=== PATIENT | male | born 1975 | race Caucasian/White ===

== ENCOUNTER 2019-08-08 02:59 | Inpatient (IN) ==
[2019-08-08] MEDS ORDERED: Naloxone 0.4 MG/ML INJ IVP PRN (03:47)
[2019-08-08 04:15] LABS: Basophils # 0.1 K/mcL (0.0-0.2); Basophils % 0.6 %; Eosinophils # 0.2 K/mcL (0.0-0.6); Eosinophils % 1.8 %; Hematocrit 40.4 % (37.5-50.1); Immature Granulocytes % 0.2 % (0-4); Lymphocytes # 1.2 K/mcL (0.6-4.6); Lymphocytes % 13.9 %; Mean Corpuscular HGB Conc 32.2 g/dL (31.6-35.5); Mean Corpuscular Hemoglobin 27.5 pg (28.0-33.3); Mean Corpuscular Volume 85.4 fL (83.0-100.0); Mean Platelet Volume 9.9 fL (9.4-12.4); Monocytes # 0.7 K/mcL (0.0-1.3); Monocytes % 7.5 %; Neutrophils # 6.6 K/mcL (1.6-8.9); Platelet Count 306 K/mcL (140-400); Red Blood Count 4.73 M/mcL (4.19-5.50); Red Cell Distribution Width 13.8 % (11.5-14.5); White Blood Count 8.8 K/mcL (4.3-11.1)
[2019-08-08 04:25] LABS: INR 1.3; Prothrombin Time 14.7 Seconds (9.4-12.1)
[2019-08-08 04:28] LABS: Activated Partial Thrombo Time 30.3 Seconds (26.0-36.0)
[2019-08-08 04:38] LABS: Alanine Aminotransferase 18 Units/L (7-52); Albumin 4.2 g/dL (3.5-5.7); Albumin/Globulin Ratio 1.6 (1.1-2.2); Alkaline Phosphatase 59 Units/L (34-104); Aspartate Amino Transferase 19 Units/L (13-39); BUN/Creatinine Ratio 16 (6-26); Bilirubin,Total 1.1 mg/dL (0.3-1.0); Blood Urea Nitrogen 16 mg/dL (6-20); Calcium 9.1 mg/dL (8.6-10.3); Carbon Dioxide 23 mEq/L (23-29); Chloride 103 mEq/L (98-107); Globulin 2.7 g/dL (2.4-3.5); Glucose 119 mg/dL (70-105); Magnesium 1.9 mg/dL (1.6-2.6); Osmolality,Calculated 284 (280-300); Potassium 3.7 mEq/L (3.5-5.1); Sodium 136 mEq/L (136-145); Total Protein 6.9 g/dL (6.4-8.9); eGFR For African Americans > 60 (> 60); eGFR For Non-African Americans > 60 (> 60)
[2019-08-08 04:41] LABS: Troponin I 0.05 ng/mL (< 0.04)
[2019-08-08 05:11] LABS: Bilirubin,Urine Negative (Negative); Blood,Urine Negative (Negative); Clarity,Urine Clear (Clear); Color,Urine Yellow (Yellow); Glucose,Urine (UA) Normal (Normal); Ketones,Urine Negative (Negative); Leukocyte Esterase,Urine Negative (Negative); Nitrite,Urine Negative (Negative); Protein,Urine Negative (Neg-Trace); Specific Gravity,Urine 1.011 (1.010-1.025); Urobilinogen,Urine Normal (Normal)
[2019-08-08] MEDS ORDERED: Morphine Sulfate 2 MG/ML SYRINGE IVP ONE (05:18)
[2019-08-08] MEDS ORDERED: Furosemide 20 MG/2 ML VIAL IVP SCH (05:45)
[2019-08-08] MEDS: amLODIPine 5 MG TABLET PO SCH (12:22)
[2019-08-08] MEDS: Furosemide 20 MG/2 ML VIAL IVP SCH ×2 (12:22→16:50)
[2019-08-08] MEDS ORDERED: Perflutren Lipid Microsphere 1.3 ML in 0.9 % Sodium Chloride 8.7 ML IVP ONE (21:02)
[2019-08-09 05:17] LABS: Basophils # 0.1 K/mcL (0.0-0.2); Basophils % 0.5 %; Eosinophils # 0.1 K/mcL (0.0-0.6); Eosinophils % 1.4 %; Hematocrit 43.5 % (37.5-50.1); Immature Granulocytes % 0.3 % (0-4); Lymphocytes # 1.2 K/mcL (0.6-4.6); Lymphocytes % 11.8 %; Mean Corpuscular HGB Conc 32.2 g/dL (31.6-35.5); Mean Corpuscular Hemoglobin 27.4 pg (28.0-33.3); Mean Corpuscular Volume 85.1 fL (83.0-100.0); Mean Platelet Volume 9.9 fL (9.4-12.4); Monocytes # 0.8 K/mcL (0.0-1.3); Monocytes % 8.3 %; Neutrophils # 7.9 K/mcL (1.6-8.9); Platelet Count 331 K/mcL (140-400); Red Blood Count 5.11 M/mcL (4.19-5.50); Segmented Neutrophils % 77.7 %; White Blood Count 10.1 K/mcL (4.3-11.1)
[2019-08-09 05:36] LABS: BUN/Creatinine Ratio 12 (6-26); Blood Urea Nitrogen 12 mg/dL (6-20); Calcium 9.4 mg/dL (8.6-10.3); Carbon Dioxide 26 mEq/L (23-29); Chloride 100 mEq/L (98-107); Glucose 105 mg/dL (70-105); Magnesium 1.9 mg/dL (1.6-2.6); Osmolality,Calculated 280 (280-300); Phosphorous 3.8 mg/dL (2.7-4.5); Potassium 3.5 mEq/L (3.5-5.1); Sodium 135 mEq/L (136-145); eGFR For African Americans > 60 (> 60); eGFR For Non-African Americans > 60 (> 60)
[2019-08-09] MEDS ORDERED: *HR* Succinylcholine 200 MG/10 ML VIAL IVP ONE (07:17)
[2019-08-09] MEDS ORDERED: *HR* FentaNYL (PF) 100 MCG/2 ML VIAL ONE (07:17)
[2019-08-09] MEDS ORDERED: Ondansetron 4 MG/2 ML VIAL ONE (07:17)
[2019-08-09] MEDS ORDERED: Lidocaine -MPF 2% 2 ML VIAL ONE ×2 (07:17→07:20)
[2019-08-09] MEDS ORDERED: Dexamethasone 4 MG/ML VIAL ONE (07:17)
[2019-08-09] MEDS ORDERED: Lidocaine -MPF 4% 5 ML AMPUL ONE (07:17)
[2019-08-09] MEDS ORDERED: *HR* Propofol 200 MG/20 ML VIAL IVP ONE (07:18)
[2019-08-09] MEDS: amLODIPine 5 MG TABLET PO SCH (08:56)
[2019-08-09] MEDS: Furosemide 20 MG/2 ML VIAL IVP SCH (08:57)
[2019-08-09] MEDS ORDERED: Esmolol 100 MG/10 ML VIAL IVP ONE (12:47)
[2019-08-09] MEDS: carvediloL 6.25 MG TABLET PO SCH (17:04)
[2019-08-09] MEDS: Furosemide 20 MG TABLET PO SCH (17:04)
[2019-08-10 04:23] LABS: Basophils # 0.1 K/mcL (0.0-0.2); Basophils % 0.7 %; Eosinophils # 0.4 K/mcL (0.0-0.6); Eosinophils % 4.8 %; Hematocrit 44.7 % (37.5-50.1); Hemoglobin 14.7 g/dL (12.9-16.9); Immature Granulocytes % 0.2 % (0-4); Lymphocytes # 1.5 K/mcL (0.6-4.6); Lymphocytes % 17.7 %; Mean Corpuscular HGB Conc 32.9 g/dL (31.6-35.5); Mean Corpuscular Hemoglobin 26.9 pg (28.0-33.3); Mean Corpuscular Volume 81.9 fL (83.0-100.0); Mean Platelet Volume 9.8 fL (9.4-12.4); Monocytes # 0.8 K/mcL (0.0-1.3); Monocytes % 9.9 %; Neutrophils # 5.5 K/mcL (1.6-8.9); Platelet Count 366 K/mcL (140-400); Red Blood Count 5.46 M/mcL (4.19-5.50); Red Cell Distribution Width 14.1 % (11.5-14.5); Segmented Neutrophils % 66.7 %; White Blood Count 8.3 K/mcL (4.3-11.1)
[2019-08-10 04:37] LABS: BUN/Creatinine Ratio 16 (6-26); Blood Urea Nitrogen 16 mg/dL (6-20); Calcium 9.2 mg/dL (8.6-10.3); Carbon Dioxide 27 mEq/L (23-29); Chloride 101 mEq/L (98-107); Glucose 116 mg/dL (70-105); Magnesium 2.1 mg/dL (1.6-2.6); Osmolality,Calculated 284 (280-300); Phosphorous 4.2 mg/dL (2.7-4.5); Potassium 3.8 mEq/L (3.5-5.1); Sodium 136 mEq/L (136-145); eGFR For African Americans > 60 (> 60); eGFR For Non-African Americans > 60 (> 60)
[2019-08-10] MEDS: carvediloL 6.25 MG TABLET PO SCH ×2 (08:34→15:29)
[2019-08-10] MEDS: amLODIPine 5 MG TABLET PO SCH (08:34)
[2019-08-10] MEDS: Aspirin Enteric Coated 81 MG Tablet PO SCH (08:35)
[2019-08-10] MEDS: Furosemide 20 MG TABLET PO SCH ×2 (08:35→15:27)
[2019-08-10] MEDS ORDERED: *HR* Heparin 10,000 UNIT/10 ML VIAL ONE (12:40)
[2019-08-10] MEDS ORDERED: Nitroglycerin 1,000 MCG/10 ML VIAL IV ONE (12:40)
[2019-08-10] MEDS ORDERED: Heparin 1,000 UNITS/500 mL 500 ML ONE (12:40)
[2019-08-10] MEDS ORDERED: 0.9 % Sodium Chloride 1,000 ML ONE (12:40)
[2019-08-10] MEDS ORDERED: ISOVUE-370 200 ML INFUS..BTL ONE (12:40)
[2019-08-10] MEDS ORDERED: *HR* Bivalirudin 250 MG VIAL IVC ONE (12:40)
[2019-08-10] MEDS ORDERED: *HR* FentaNYL (PF) 100 MCG/2 ML VIAL ONE (13:15)
[2019-08-10] MEDS ORDERED: *HR* Midazolam HCl 2 MG/2 ML VIAL ONE (13:15)
[2019-08-10] MEDS: Spironolactone 25 MG TABLET PO SCH (15:27)
[2019-08-11 04:03] LABS: Basophils # 0.1 K/mcL (0.0-0.2); Basophils % 0.8 %; Eosinophils # 0.3 K/mcL (0.0-0.6); Hemoglobin 14.1 g/dL (12.9-16.9); Immature Granulocytes % 0.2 % (0-4); Lymphocytes # 1.1 K/mcL (0.6-4.6); Lymphocytes % 16.1 %; Mean Corpuscular HGB Conc 31.3 g/dL (31.6-35.5); Mean Corpuscular Hemoglobin 26.6 pg (28.0-33.3); Mean Corpuscular Volume 84.7 fL (83.0-100.0); Mean Platelet Volume 9.8 fL (9.4-12.4); Monocytes # 0.7 K/mcL (0.0-1.3); Monocytes % 9.9 %; Neutrophils # 4.5 K/mcL (1.6-8.9); Platelet Count 325 K/mcL (140-400); Red Blood Count 5.31 M/mcL (4.19-5.50); Red Cell Distribution Width 13.9 % (11.5-14.5); White Blood Count 6.7 K/mcL (4.3-11.1)
[2019-08-11 04:37] LABS: BUN/Creatinine Ratio 15 (6-26); Blood Urea Nitrogen 16 mg/dL (6-20); Calcium 9.2 mg/dL (8.6-10.3); Carbon Dioxide 25 mEq/L (23-29); Chloride 100 mEq/L (98-107); Glucose 107 mg/dL (70-105); Magnesium 1.9 mg/dL (1.6-2.6); Osmolality,Calculated 280 (280-300); Phosphorous 3.9 mg/dL (2.7-4.5); Potassium 4.1 mEq/L (3.5-5.1); Sodium 134 mEq/L (136-145); eGFR For African Americans > 60 (> 60); eGFR For Non-African Americans > 60 (> 60)
[2019-08-11 07:16] VITALS: BP 134/95
[2019-08-11] MEDS: Furosemide 20 MG TABLET PO SCH (08:01)
[2019-08-11] MEDS: carvediloL 6.25 MG TABLET PO SCH (08:01)
[2019-08-11] MEDS: Spironolactone 25 MG TABLET PO SCH (08:01)
[2019-08-11] MEDS: Aspirin Enteric Coated 81 MG Tablet PO SCH (08:02)
[2019-08-11] MEDS: amLODIPine 5 MG TABLET PO SCH (08:02)
[2019-08-11] MEDS ORDERED: FLU Vac QV 19-20 (6Month+)/PF 0.5 ML SYRINGE IM ONE (10:14)
== END 2019-08-11 11:07 | disposition home or self-care (01) | DRG 281 ==
LOC: 2NNU
PROVIDERS: ADMIT Internal Medicine; ATTEND Internal Medicine